=== PATIENT | male | born 1975 | race Asian ===

== ENCOUNTER → 2022-03-23 | Outpatient (CLI) | payer OTHER | END | disposition home or self-care (01) | LOC: MSR 09:10 | PROVIDERS: ATTEND Chiropractor | DX: R07.9 Chest pain, unspecified (principal); E29.1 Testicular hypofunction; M47.814 Spondylosis without myelopathy or radiculopathy, thoracic region | CPT/HCPCS: 71046; 84403; 93306; 36415-L1; 36415-TC ==